=== PATIENT | female | born 1960 | race Caucasian/White ===

== ENCOUNTER 2018-07-07 08:30 | Day surgery (SDC) | payer OTHER ==
[~2018-07-07] VITALS: Ht 165.1 cm; Wt 88.5 kg
[2018-07-07] MEDS ORDERED: RANI150C PO (09:35)
[2018-07-07] MEDS ORDERED: METF1000 PO (09:35)
[2018-07-07] MEDS ORDERED: fentaNYL 0.05 MG/ML VIAL ONE (10:08)
[2018-07-07] MEDS ORDERED: MIDAZOLAM 2 MG/2 ML VIAL ONE (10:08)
== END 2018-07-07 11:55 | disposition home or self-care (01) ==
LOC: MDS 08:30 → MMU 08:30 → MDS 11:55
PROVIDERS: ATTEND Internal Medicine Gastroenterology
DX: K21.0 Gastro-esophageal reflux disease with esophagitis (principal); K44.9 Diaphragmatic hernia without obstruction or gangrene; I10 Essential (primary) hypertension; E11.9 Type 2 diabetes mellitus without complications; E78.5 Hyperlipidemia, unspecified; E66.9 Obesity, unspecified; Z68.32 Body mass index [BMI] 32.0-32.9, adult; Z79.899 Other long term (current) drug therapy; Z98.890 Other specified postprocedural states
CPT/HCPCS: 36415; 43239; 86677; J2250; J7030; J3010